=== PATIENT | female | born 1955 | race Caucasian/White ===

== ENCOUNTER 2017-06-10 15:30 | Inpatient (IN) | payer MEDICARE, OTHER ==
[~2017-06-10] VITALS: Ht 160 cm; Wt 83.0 kg
--- NOTE | 2017-06-10 15:46 | NUR ---
PATIENT IS AWAKE AND ALERT. AMBULATES WITH STEADY GAIT. SISTER AT BEDSIDE.
--- NOTE | 2017-06-10 16:19 | NUR ---
PATIENT IS AWAKE AND ALERT WITH NO NEW COMPLAINTS . AWAITING TEST RESULTS.
[2017-06-10 17:20] LABS: *BILIRUBIN,URIN NEGATIVE (NEGATIVE); *BLOOD, URINE Trace-lysed (NEGATIVE); *CLARITY,URINE CLEAR (CLEAR); *COLOR,URINE YELLOW (YELLOW); *KETONES,URINE NEGATIVE (NEGATIVE); *PROTEIN,URINE NEGATIVE (NEGATIVE); *UROBILINOGEN,URINE 0.2 E.U./dl (NORMAL); LEUKOCYTE ESTERASE ,URINE NEGATIVE (NEGATIVE); NITRITE, URINE NEGATIVE (NEGATIVE); PH,URINE 5.5 (5.0-8.0); UGLUCOSE NEGATIVE (NEGATIVE)
[2017-06-10 17:35] LABS: MUCUS,URINE FEW /LPF (0-FEW); SQUAMOUS EPITHELIAL CELL,UR FEW /HPF (NONE SEEN); WBC,URINE 0-3 /HPF (0-3)
[2017-06-10 17:50] LABS: BASOPHILS # (AUTO) 0.1 K/uL (0.0-8.0); BASOPHILS % (AUTO) 0.7 % (0.0-2.0); EOSINOPHILS # (AUTO) 0.2 K/uL (0.0-0.7); EOSINOPHILS % (AUTO) 2.6 % (0.0-7.0); HEMATOCRIT 39.2 % (31.2-41.9); HEMOGLOBIN 12.9 g/dL (10.9-14.3); LYMPHOCYTES # (AUTO) 3.3 K/uL (20.0-40.0); LYMPHOCYTES % (AUTO) 36.1 % (20.5-51.5); MEAN CORPUSCULAR HGB CONC 33 g/dL (32.3-35.6); MEAN CORPUSCULAR VOLUME 88.3 fL (75.5-95.3); MONOCYTES # (AUTO) 0.4 K/uL (2.0-10.0); MONOCYTES % (AUTO) 4.5 % (0.0-11.0); NEUTROPHILS # (AUTO) 5.1 K/uL (1.8-8.9); NEUTROPHILS % (AUTO) 56.1 % (38.5-71.5); PLATELET COUNT (AUTO) 319 K/uL (179-408); RED BLOOD CELL COUNT(AUTO) 4.44 MIL/uL (3.63-4.92); WHITE BLOOD COUNT (AUTO) 9.1 K/uL (3.8-11.8)
[2017-06-10 17:54] LABS: POTASSIUM 3.9 mmol/L (3.5-5.1)
[2017-06-10 18:00] LABS: BILIRUBIN,DIRECT 0.1 mg/dL (0.0-0.2); BILIRUBIN,TOTAL 0.3 mg/dL (0.2-1.0); TOTAL PROTEIN, SERUM 7.9 g/dL (6.4-8.2)
[2017-06-10] MEDS ORDERED: MILN50TA PO (18:32)
[2017-06-10] MEDS ORDERED: TRAZODONE PO (18:32)
[2017-06-10] MEDS ORDERED: CYCL5TAB PO (18:32)
[2017-06-10] MEDS ORDERED: BENA20TA2 PO (18:32)
[2017-06-10 18:51] LABS: THYROID STIMULATING HORMONE 2.169 mIU/mL (0.358-3.740)
--- NOTE | 2017-06-10 19:13 | NUR ---
RECEIVED REPORT FROM BRIANNE ROMERO. PT IN BED. VISITOR AT BEDSIDE. WAITING FOR CT RESULTS.
--- NOTE | 2017-06-10 19:17 | NUR ---
PER MD CALDERÓN. PT D/C PENDING REPEAT TROP.
--- NOTE | 2017-06-10 20:04 | NUR ---
TRANSFERED TO [address] [place] [address]
--- NOTE | 2017-06-10 20:10 | NUR ---
ADMITTED PT TO TELE, FROM ER WITH DIAGNOSIS OF TIA, UNDER DOCTOR GILMAR. PT AXOX4. DENIES ANY PAIN. NOT IN ACUTE DISTRESS. IV LINE STARTED ON RIGHT HAND, INTACT AND PATENT. INITIATED ADMISSION ASSESSMENT. SAFETY MEASURE INITIATED AND CALL COOK WITHIN REACHED.
[2017-06-10] MEDS ORDERED: HYDROCODONE/APAP 5-325MG TABLET PO PRN (20:30)
[2017-06-10] MEDS ORDERED: ACETAMINOPHEN 325 MG TABLET PO PRN (20:30)
[2017-06-10] MEDS ORDERED: ONDANSETRON 4 MG/2 ML VIAL IV PRN (20:30)
[2017-06-10] MEDS ORDERED: TEMAZEPAM 15 MG CAPSULE PO PRN (20:30)
[2017-06-10] MEDS ORDERED: MAGNESIUM HYDROXIDE 30 ML LIQUID UDC PO PRN (20:30)
[2017-06-10] MEDS ORDERED: CYCLOBENZAPRINE HCL 10 MG TABLET PO SCH (21:00)
[2017-06-10] MEDS ORDERED: CYCLOBENZAPRINE HCL PO SCH (21:00)
[2017-06-10 21:03] VITALS: BP 119/67
[2017-06-10] MEDS ORDERED: TEMAZEPAM 7.5 MG CAPSULE PO PRN (21:30)
[2017-06-11] VITALS: BP 108/58
[2017-06-11] MEDS ORDERED: INFLUENZA VACCINE 2017-2018 0.5 ML DISP.SYRIN IM ONE (03:00)
[2017-06-11 04:00] VITALS: BP 102/70
--- NOTE | 2017-06-11 05:04 | NUR ---
PT SLEPT WELL AFTER RESTORIL WAS GIVEN. NOT IN ACUTE DISTRESS. IV SITE ON RIGHT HAND INTACT AND PATENT. DENIES ANY PAIN OR DISCOMFORT. ASSISTED TO TOILET AD JEAN MARIE. DENIES ANY PAIN OR SOB. BED ON LOW POSITION WITH BED ALARM ON. SAFETY MEASURE MAINTAINED.
[2017-06-11] MEDS ORDERED: PANTOPRAZOLE SODIUM 40 MG TABLET.DR PO SCH (07:00)
--- NOTE | 2017-06-11 07:00 | NUR ---
RECEIVED PATIENT IN BED, A AND O X 4 NO ACUTE DISTRESS NOTED. ON TELE, SR. NO S/S OF FACIAL DROOPING AND WEAKNESS NOTED. WITH IV ACCESS ON THE RIGHT HAND #22 INTACT AND PATENT. SKIN INTACT, INDEPENDENT WITH ADLS. NO COMPLAINTS OF PAIN AND DISCOMFORT AT THIS TIME. COMFORT MEASURES PROVIDED. NEEDS ATTENDED AND ANTICIPATED. CALL LIGHT WITHIN REACH. WILL CONTINUE TO MONITOR CLOSELY.
[2017-06-11 07:51] LABS: BASOPHILS % (AUTO) 0.7 % (0.0-2.0); EOSINOPHILS # (AUTO) 0.3 K/uL (0.0-0.7); EOSINOPHILS % (AUTO) 4.8 % (0.0-7.0); LYMPHOCYTES # (AUTO) 2.2 K/uL (20.0-40.0); MEAN CORPUSCULAR HGB CONC 33 g/dL (32.3-35.6); MONOCYTES # (AUTO) 0.4 K/uL (2.0-10.0); NEUTROPHILS # (AUTO) 3.8 K/uL (1.8-8.9)
[2017-06-11 08:02] LABS: BILIRUBIN,TOTAL 0.5 mg/dL (0.2-1.0); CREATININE 0.9 mg/dL (0.6-1.3); MAGNESIUM 2.2 mg/dL (1.8-2.4); POTASSIUM 4.3 mmol/L (3.5-5.1); TOTAL PROTEIN, SERUM 6.9 g/dL (6.4-8.2)
[2017-06-11 08:08] LABS: HEMATOCRIT 35.8 % (31.2-41.9); HEMOGLOBIN 11.9 g/dL (10.9-14.3); LYMPHOCYTES % (AUTO) 32.8 % (20.5-51.5); MEAN CORPUSCULAR HEMOGLOBIN 29.1 uug (24.7-32.8); MEAN CORPUSCULAR VOLUME 87.4 fL (75.5-95.3); MONOCYTES % (AUTO) 6.4 % (0.0-11.0); NEUTROPHILS % (AUTO) 55.3 % (38.5-71.5); PLATELET COUNT (AUTO) 276 K/uL (179-408); RED BLOOD CELL COUNT(AUTO) 4.09 MIL/uL (3.63-4.92)
[2017-06-11 08:09] LABS: WHITE BLOOD COUNT (AUTO) 6.8 K/uL (3.8-11.8)
[2017-06-11] MEDS ORDERED: ASPIRIN EC 325 MG TABLET.DR PO SCH (09:00)
[2017-06-11] MEDS ORDERED: BENAZEPRIL HCL 20 MG TABLET PO SCH (09:00)
--- NOTE | 2017-06-11 09:00 | NUR ---
CLARIFIED AND ASKED IF PATIENT STILL WANTED THE INFLUENZA VACCINE TO BE GIVEN. SAID THAT SHE DIDN'T WANT IT ANYMORE, AND THAT SHE COULD GET IT FROM HER PRIMARY DOCTOR.
[2017-06-11 09:07] LABS: PHOSPHOROUS 4.3 mg/dL (2.5-4.9)
--- NOTE | 2017-06-11 09:13 | NUR ---
COMPLAINED OF HEADACHE 07/26, ADMINISTERED TYLENOL 650MG Q6 PRN. WILL REASSESS AFTER 30 MINS.
[2017-06-11 11:08] VITALS: BP 96/48
--- NOTE | 2017-06-11 11:45 | NUR ---
seen and examined by dr. peck, with new orders, carried out.
--- NOTE | 2017-06-11 12:00 | NUR ---
2DECHO DONE, 60 EF, TRACE TR, TRACE MR, NOTED per US tech. Will continue to monitor
[2017-06-11 15:10] VITALS: BP 112/64
[2017-06-11] MEDS ORDERED: ATOR20TA PO (17:27)
[2017-06-11] MEDS ORDERED: ASPI81TA31 PO (17:27)
--- NOTE | 2017-06-11 18:29 | NUR ---
PATIENT IN STABLE CONDITION NO ACUTE DISTRESS NOTED. FOR DISCHARGE, DISCHARGE INSTRUCTIONS EXPLAINED, PATIENT VERBALIZED UNDERSTANDING. COPIES OF DISCHARGE PAPERS AND PRESCRIPTION GIVEN. WAITING FOR SISTER TO COME AND PICK HER UP. WILL ENDORSE ACCORDINGLY.
--- NOTE | 2017-06-11 19:06 | NUR ---
DISCHARGED PATIENT IN STABLE CONDITION, ALL DC INSTRUCTIONS AND PAPERWORK GIVEN AND EXPALINED. ACCOMPANIED PATIENT TO [facility], PICKED UP BY SISTER VIA PRIVATE CAR
[2017-06-11] MEDS ORDERED: ATORVASTATIN 20 MG TABLET PO SCH (21:00)
[2017-06-12] MEDS ORDERED: ASPIRIN 81 MG TAB.CHEW PO SCH (09:00)
== END 2017-06-11 19:00 | disposition home or self-care (01) | DRG 69 ==
LOC: ER 15:31 → TELE 20:03
PROVIDERS: ADMIT Internal Medicine; ATTEND Internal Medicine
DX: G45.9 Transient cerebral ischemic attack, unspecified (principal); E78.5 Hyperlipidemia, unspecified; Z85.3 Personal history of malignant neoplasm of breast; Z79.82 Long term (current) use of aspirin; M81.0 Age-related osteoporosis without current pathological fracture; M19.90 Unspecified osteoarthritis, unspecified site; M79.7 Fibromyalgia; I10 Essential (primary) hypertension; G43.909 Migraine, unspecified, not intractable, without status migrainosus; Y92.59 Other trade areas as the place of occurrence of the external cause; Z98.890 Other specified postprocedural states
CPT/HCPCS: 36415; 70030-TC; 70450; 71045; 83735; 84100; 84443; 85025; 85730; 87086; 93005; 93307; 93880; A4663